=== PATIENT | female | born 1990 | race African-American/Black ===

== ENCOUNTER 2019-11-05 10:15 | Emergency (ER) | payer MEDICAID ==
[~2019-11-05] VITALS: Ht 162.6 cm; Wt 84.0 kg
[2019-11-05 11:12] VITALS: BP 149/93
== END 2019-11-05 13:03 | disposition left against medical advice (07) ==
LOC: ER 10:15
DX: Z53.21 Procedure and treatment not carried out due to patient leaving prior to being seen by health care provider (principal)

== ENCOUNTER 2019-11-05 13:57 | Emergency (ER) | payer MEDICAID ==
[~2019-11-05] VITALS: Ht 160 cm; Wt 77.0 kg
[2019-11-05 14:25] VITALS: BP 149/87
== END 2019-11-05 19:20 | disposition home or self-care (01) ==
LOC: ER 13:57
DX: M79.661 Pain in right lower leg (principal); V43.53XA Car driver injured in collision with pick-up truck in traffic accident, initial encounter; Y93.89 Activity, other specified; Y92.488 Other paved roadways as the place of occurrence of the external cause
CPT/HCPCS: 81025; 99283